=== PATIENT | male | born 1990 ===

== ENCOUNTER 2016-12-13 18:42 | Emergency (ER) | payer SELFPAY ==
[2016-12-13 18:52] VITALS: BP 132/88; PULSE 76; RESP 16; TEMP 98.6; O2SAT 97; BMI 23.3
[2016-12-13] MEDS ORDERED: Tmp-Smz 800 mg-160 mg DS Tab PO STA (19:01)
--- NOTE | 2016-12-13 19:01 | ED PDOC ---
Arrival/HPI - General Chief Complaint: Finger,Hand,&Wrist Time Seen by Provider: 12/13/16 18:52 Historian: Patient - History of Present Illness Narrative History of Present Illness (Text): 12/13/16 18:57 26yo male with no PMHx in ER for infected right thumb x few days. States swelling and pain of thumb started after pulling off a nail cuticle 3days ago. Denies fever, chills, any other complaint. Past Medical History - Provider Review Nursing Documentation Reviewed: Yes - Infectious Disease Hx of Infectious Diseases: None - Tetanus Immunization Tetanus Immunization: Up to Date - Past Medical History Past Medical History: No Previous - Psychiatric Hx Depression: No Hx Emotional Abuse: No Hx Physical Abuse: No Hx Substance Use: No - Past Surgical History Past Surgical History: No Previous - Anesthesia Hx Anesthesia: Yes - Suicidal Assessment Feels Threatened In Home Enviroment: No Family/Social History - Physician Review Nursing Documentation Reviewed: Yes Family/Social History: Unknown Family HX Smoking Status: Current Some Days Smoker Hx Alcohol Use: Yes (beer) Hx Substance Use: No Hx Substance Use Treatment: No Allergies/Home Meds Allergies/Adverse Reactions: Allergies No Known Allergies Allergy (Verified 11/14/15 19:38) Review of Systems - Physician Review All systems were reviewed & negative as marked: Yes - Review of Systems Constitutional: Normal Eyes: Normal ENT: Normal Respiratory: Normal Cardiovascular: Normal Gastrointestinal: Normal Genitourinary Male: Normal Musculoskeletal: Normal Skin: Abscess (right thumb) Neurological: Normal Endocrine: Normal Hemo/Lymphatic: Normal Psychiatric: Normal Physical Exam Vital Signs Reviewed: Yes Vital Signs Temp Pulse Resp BP Pulse Ox 12/13/16 18:50 98.6 F 76 16 132/88 97 Temperature: Afebrile Blood Pressure: Normal Pulse: Regular Respiratory Rate: Normal Appearance: Positive for: Well-Appearing, Non-Toxic, Comfortable Pain Distress: None Mental Status: Positive for: Alert and Oriented X 3 - Systems Exam Head: Present: Atraumatic, Normocephalic Pupils: Present: PERRL Extroacular Muscles: Present: EOMI Conjunctiva: Present: Normal Mouth: Present: Moist Mucous Membranes Neck: Present: Normal Range of Motion Respiratory/Chest: Present: Clear to Auscultation, Good Air Exchange. No: Respiratory Distress, Accessory Muscle Use Cardiovascular: Present: Regular Rate and Rhythm, Normal S1, S2. No: Murmurs Abdomen: Present: Normal Bowel Sounds. No: Tenderness, Distention, Peritoneal Signs Back: Present: Normal Inspection Upper Extremity: Present: Normal Inspection. No: Cyanosis, Edema Lower Extremity: Present: Normal Inspection. No: Edema Neurological: Present: GCS=15, CN II-XII Intact, Speech Normal Skin: Present: Warm, Dry, Normal Color, Abscess (Fluctuant tender abscess noted on right thumb nail base). No: Rashes Psychiatric: Present: Alert, Oriented x 3, Normal Insight, Normal Concentration Medical Decision Making - Medication Orders Current Medication Orders: Discontinued Medications Tramadol HCl (Ultram) 50 mg PO STAT STA Stop: 12/13/16 19:02 Last Admin: 12/13/16 19:19 Dose: 50 MG Trimethoprim/Sulfamethoxazole (Bactrim Ds Tab) 1 tab PO STAT STA PRN Reason: Protocol Stop: 12/13/16 19:02 Last Admin: 12/13/16 19:19 Dose: 1 TAB Disposition/Present on Arrival - Present on Arrival Any Indicators Present on Arrival: No History of DVT/PE: No History of Uncontrolled Diabetes: No Urinary Catheter: No History of Decub. Ulcer: No History Surgical Site Infection Following: None - Disposition Have Diagnosis and Disposition been Completed?: Yes Diagnosis: Paronychia Disposition: HOME/ ROUTINE Disposition Time: 19:15 Patient Plan: Discharge Condition: STABLE Discharge Instructions (ExitCare): Paronychia (ED) Additional Instructions: Take medication as directed Follow up with your doctor Return to ER for any new or worsening symptoms Prescriptions: Sulfamethoxazole/Trimethoprim [Bactrim DS 800 mg-160 mg] 1 tab PO BID #14 tab Referrals: [facility] at [facility] [place] [Outside] - Follow up with primary - Incision & Drainage Of Abscess Anesthesia: Lidocaine 1% (5ml) Prep Used: Betadine Procedure: Incised W/Scalpel Blade#: (11), Drained Pus
== END 2016-12-13 19:23 | disposition home or self-care (01) ==
LOC: ED 18:42
DX: L03.011 Cellulitis of right finger (principal)

== ENCOUNTER 2016-12-22 15:27 | Emergency (ER) | payer SELFPAY ==
[2016-12-22 15:27] VITALS: BMI 23.3
[2016-12-22 15:39] VITALS: BP 138/82; PULSE 71; RESP 18; TEMP 98.4; O2SAT 98
[2016-12-22] MEDS ORDERED: Lidocaine 2% Inj (20ml) IJ STA (16:01)
--- NOTE | 2016-12-22 16:53 | ED PDOC ---
Arrival/HPI - General Chief Complaint: Upper Extremity Problem/Injury Time Seen by Provider: 12/22/16 16:01 Historian: Patient - History of Present Illness Narrative History of Present Illness (Text): 12/22/16 18:11 26-year-old male presents today with right thumb infection. 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 Patient states about a week ago he had developed some redness and pain to the proximal cuticle after repeating the cuticle. Patient was placed on antibiotics at that time and was discharged home. Patient states he has been taking antibiotics but over the past 2 days he has developed significant swelling and purulent discharge coming from the proximal cuticle. Patient denies fevers at home. Complaining of pain to the thumb. No other complaints. Past Medical History - Provider Review Nursing Documentation Reviewed: Yes - Travel History Have you recently traveled outside [place] w/in the past 3 mons?: No - Infectious Disease Hx of Infectious Diseases: None - Tetanus Immunization Tetanus Immunization: Up to Date - Past Medical History Past Medical History: No Previous - Psychiatric Hx Depression: No Hx Emotional Abuse: No Hx Physical Abuse: No Hx Substance Use: Yes - Past Surgical History Past Surgical History: No Previous - Anesthesia Hx Anesthesia: Yes - Suicidal Assessment Feels Threatened In Home Enviroment: No Family/Social History - Physician Review Nursing Documentation Reviewed: Yes Family/Social History: Unknown Family HX Smoking Status: Light Smoker < 10 Cigarettes Daily Hx Alcohol Use: Yes (beer) Frequency of alcohol use: Socially Hx Substance Use: Yes Substance used: marijuana Hx Substance Use Treatment: No Allergies/Home Meds Allergies/Adverse Reactions: Allergies No Known Allergies Allergy (Verified 12/22/16 15:39) Review of Systems - Review of Systems Constitutional: absent: Fatigue, Fevers Respiratory: absent: SOB, Cough Cardiovascular: absent: Chest Pain, Palpitations Gastrointestinal: absent: Abdominal Pain, Vomiting Musculoskeletal: Arthralgias (thumb pain) Skin: Other (paronychia/thumb pain) Neurological: absent: Headache, Dizziness Physical Exam Vital Signs Reviewed: Yes Vital Signs Temp Pulse Resp BP Pulse Ox 12/22/16 15:33 98.4 F 71 18 138/82 98 Temperature: Afebrile Blood Pressure: Normal Pulse: Regular Respiratory Rate: Normal Appearance: Positive for: Well-Appearing, Non-Toxic, Comfortable Pain Distress: None Mental Status: Positive for: Alert and Oriented X 3 - Systems Exam Head: Present: Atraumatic Mouth: Present: Moist Mucous Membranes Neck: Present: Normal Range of Motion Upper Extremity: Present: Normal ROM, NORMAL PULSES, Tenderness (right thumb; there is tenderness, erythema, fluctuance and purulent discharge noted along the proximal cuticle and along the dorsal aspect of the thumb; , + tenderness + edema. full rom of finger. ), Swelling, Erythema, Neurovascularly Intact, Capillary Refill < 2s Neurological: Present: GCS=15, Speech Normal Skin: Present: Warm, Dry Psychiatric: Present: Alert, Oriented x 3 Medical Decision Making ED Course and Treatment: 12/22/16 18:14 Patient is nontoxic well-appearing in no distress. Vital signs are stable. Patient with a very large paronychia noted to the right thumb. Incision and drainage was performed. Large amount of purulent discharge released. Wound was packed with a quarter inch sterile packing. Dressing applied. Patient was originally on Bactrim. We will change the antibiotic to clindamycin to cover for anaerobic/mouth bacteria as the patient is a nail biter. Motrin po Clindamycin by mouth Patient was advised to return in 2 days for packing removal and reevaluation. He was advised to return immediately if symptoms worsen persist or if new concerning symptoms develop. The patient was advised to follow-up with a hand specialist. Patient was advised to take new antibiotics as prescribed. Patient was seen and evaluated by Dr. Alberto Patient verbalizes understanding of discharge instructions and need for immediate followup. Impression: Paronychia, thumb Motrin one tablet every 6 hours as needed for pain clindamycin 3 times daily x 7 days. Return in 2 days for wound check and packing removal. Follow up with the hand specialist. Return immediately if symptoms worsen persist or if new symptoms develop: High fevers, increasing pain, increasing redness, swelling or if any other concerning symptoms develop. - Medication Orders Current Medication Orders: Discontinued Medications Clindamycin HCl (Cleocin) 300 mg PO STAT STA PRN Reason: Protocol Stop: 12/22/16 16:53 Last Admin: 12/22/16 17: Dose: 300 MG Ibuprofen (Motrin Tab) 600 mg PO STAT STA Stop: 12/22/16 16:53 Last Admin: 12/22/16 17:26 Dose: 600 MG MAR Pain/Vitals Document 12/22/16 17:26 NAVEEN (Rec: 12/22/16 17:26 FJA [id number]) Pain Reassessment Is This A Pain ReAssessment? No Sleep Is patient sleeping during reassessment? No Presence of Pain Presence of Pain Yes Pain Scale Used Pain Scale Used Numeric Location Left, Right or Bilateral Right Pain Location Body Site Thumb Lidocaine HCl (Lidocaine 2% 20ml Vial) 3 ml IJ ONCE STA Stop: 12/22/16 16:02 Last Admin: 12/22/16 16:15 Dose: 3 ML Comments: ROSALIA brenner administered medication. Procedures - Incision and Drainage Site: right thumb Blade Size: 11 I & D Procedure: gauze wick placed Progress: right thumb; paronychia digital block performed usin 2cc of 2% lidocaine; adequate anesthesia; using an 11 blade, a small incision was made under the proximal cuticle. moderate amount of purulent discharge released. 1/4 in sterile packing placed. dressing applied. Disposition/Present on Arrival - Present on Arrival Any Indicators Present on Arrival: No History of DVT/PE: No History of Uncontrolled Diabetes: No Urinary Catheter: No History of Decub. Ulcer: No History Surgical Site Infection Following: None - Disposition Have Diagnosis and Disposition been Completed?: Yes Diagnosis: Paronychia Disposition: HOME/ ROUTINE Disposition Time: 16:52 Patient Plan: Discharge Condition: GOOD Discharge Instructions (ExitCare): Paronychia (ED) Additional Instructions: Keep wound clean and dry Take clindamycin 3 times daily 7 days Warm compresses Return in 2 days for packing removal and reevaluation Follow-up with a hand specialist within the next 2 days Follow up with the primary care physician within the next 2 days. Return immediately if symptoms worsen or persist or if new concerning symptoms develop Prescriptions: Bacitracin 1 appl TP BID #1 tube Clindamycin [Cleocin] 150 mg PO TID #21 cap Ibuprofen [Motrin] 600 mg PO Q6H PRN #20 tab PRN Reason: pain/fever reduction Referrals: Beata Hughes MD [Staff Provider] - Follow up with primary [facility] at [facility] [place] - Follow up with primary Forms: WORK NOTE
== END 2016-12-22 17:28 | disposition home or self-care (01) ==
LOC: ED 15:27
DX: L03.011 Cellulitis of right finger (principal)

== ENCOUNTER 2016-12-24 11:38 | Emergency (ER) | payer SELFPAY ==
[2016-12-24 11:49] VITALS: BMI 22.4
--- NOTE | 2016-12-24 11:59 | ED PDOC ---
Arrival/HPI - General Chief Complaint: Wound Check Time Seen by Provider: 12/24/16 11:54 Historian: Patient - History of Present Illness Narrative History of Present Illness (Text): 12/24/16 11:54 26 y/o male, pmh including paronychia s/p I&D about 2 days ago, nkda, on clindamycin now, here at the ER for wound check. Pt. stated that the pain is alot less than before, no numbness or tingling, tolerating well with the oral antibiotic. Past Medical History - Provider Review Nursing Documentation Reviewed: Yes - Infectious Disease Hx of Infectious Diseases: None - Tetanus Immunization Tetanus Immunization: Up to Date - Past Medical History Past Medical History: No Previous - Psychiatric Hx Depression: No Hx Emotional Abuse: No Hx Physical Abuse: No Hx Substance Use: Yes - Past Surgical History Past Surgical History: No Previous - Anesthesia Hx Anesthesia: Yes - Suicidal Assessment Feels Threatened In Home Enviroment: No Family/Social History - Physician Review Nursing Documentation Reviewed: Yes Family/Social History: Unknown Family HX Smoking Status: Light Smoker < 10 Cigarettes Daily Hx Alcohol Use: Yes (beer) Hx Substance Use: Yes Substance used: marijuana Hx Substance Use Treatment: No Allergies/Home Meds Allergies/Adverse Reactions: Allergies No Known Allergies Allergy (Verified 12/24/16 11:49) Review of Systems - Review of Systems Constitutional: absent: Fatigue, Fevers Cardiovascular: absent: Chest Pain Gastrointestinal: absent: Abdominal Pain, Diarrhea, Nausea, Vomiting Musculoskeletal: absent: Arthralgias, Back Pain, Neck Pain, Joint Swelling, Myalgias Skin: Other (paronychia). absent: Rash, Pruritis, Skin Lesions, Laceration, Ulcer, Cellulitis Neurological: absent: Headache, Dizziness, Focal Weakness, Gait Changes, Speech Changes, Facial Droop, Disequilibrium, Seizure Physical Exam Vital Signs Reviewed: Yes Vital Signs Temp Pulse Resp BP Pulse Ox 12/24/16 11:50 97.7 F 64 17 147/77 100 Temperature: Afebrile Blood Pressure: Normal Pulse: Regular Respiratory Rate: Normal Appearance: Positive for: Well-Appearing, Non-Toxic, Comfortable Pain Distress: None Mental Status: Positive for: Alert and Oriented X 3 - Systems Exam Head: Present: Atraumatic, Normocephalic Pupils: Present: PERRL Extroacular Muscles: Present: EOMI Conjunctiva: Present: Normal Mouth: Present: Moist Mucous Membranes Neck: Present: Normal Range of Motion Respiratory/Chest: Present: Clear to Auscultation, Good Air Exchange. No: Respiratory Distress, Accessory Muscle Use Cardiovascular: Present: Regular Rate and Rhythm, Normal S1, S2. No: Murmurs Abdomen: Present: Normal Bowel Sounds. No: Tenderness, Distention, Peritoneal Signs Back: Present: Normal Inspection Upper Extremity: Present: Normal Inspection, Other (Rt. hand thumb: visible dressing with healing paronychia with no cellulitis or streaking, FROM without limitation, sensation intact, motor 5/5, +Radial pulse, capillary refill< 2 seconds, neurovascular intact. ). No: Cyanosis, Edema Lower Extremity: Present: Normal Inspection. No: Edema Neurological: Present: GCS=15, CN II-XII Intact, Speech Normal Skin: Present: Warm, Dry, Normal Color. No: Rashes Psychiatric: Present: Alert, Oriented x 3, Normal Insight, Normal Concentration Medical Decision Making ED Course and Treatment: 12/24/16 12:00 -old packing/dressing removed, no packing indicated, wound irrigated with new dressing and bacitracin applied. -Discharge home with education on follow up with your own pmd and hand specialist for follow up, continue the antibiotic, return to the ER for any new or worsening signs or symptoms. - PA / BUSINESS PERFORMANCE SPECIALIST / Resident Statement MD/DO has reviewed & agrees with the documentation as recorded. Disposition/Present on Arrival - Present on Arrival Any Indicators Present on Arrival: No History of DVT/PE: No History of Uncontrolled Diabetes: No Urinary Catheter: No History of Decub. Ulcer: No History Surgical Site Infection Following: None - Disposition Have Diagnosis and Disposition been Completed?: Yes Diagnosis: Visit for wound check Disposition: HOME/ ROUTINE Disposition Time: 12:01 Patient Plan: Discharge Condition: GOOD Additional Instructions: Discharge home with education on follow up with your own pmd and hand specialist for follow up, continue the antibiotic, return to the ER for any new or worsening signs or symptoms. Referrals: Parker Hogan MD [Staff Provider] - Follow up with primary [facility] at [facility] [place] [Outside] - Follow up with primary Forms: WORK NOTE
[2016-12-24 12:52] VITALS: BP 115/69; PULSE 74; RESP 16; TEMP 98.8; O2SAT 98
== END 2016-12-24 12:51 | disposition home or self-care (01) ==
LOC: ED 11:38
DX: Z48.817 Encounter for surgical aftercare following surgery on the skin and subcutaneous tissue (principal)